=== PATIENT | female | born 1965 | race American Indian/Alaskan Native ===

== ENCOUNTER 2018-01-13 10:19 | Outpatient (CLI) | payer OTHER ==
--- NOTE | 2018-01-13 11:07 | XRay Report ---
RIGHT KNEE RADIOGRAPHS INDICATION: Crohn's disease. COMPARISON: None similar. FINDINGS: AP and lateral right knee radiographs demonstrate intact bony articulation and appearance. Normal soft tissues without evidence of suprapatellar effusion. CONCLUSION: Normal right knee radiographs. Thank you for the opportunity to participate in this patient's care.
--- NOTE | 2018-01-13 11:14 | XRay Report ---
LUMBAR SPINE RADIOGRAPHS INDICATION: Crohn's disease, depression, fibroid tumors. COMPARISON: None similar. FINDINGS: AP and lateral lumbar spine radiographs demonstrate normal vertebral body stature and alignment. Slight lower lumbar disc narrowing not entirely excluded. Mild lumbar degenerative spurring. Intact SI joints. Few pelvic calcifications. Nonobstructive bowel gas pattern. Right hemiabdomen postsurgical howie. Clothing artifact projects over lower thoracic spine. CONCLUSION: No acute radiographic abnormality with few incidental findings, as above. Thank you for the opportunity to participate in this patient's care.
== END 2018-01-13 10:20 | disposition home or self-care (01) ==
LOC: XRAY 10:19
PROVIDERS: ATTEND Internal Medicine
DX: M53.86 Other specified dorsopathies, lumbar region (principal); D21.9 Benign neoplasm of connective and other soft tissue, unspecified; F32.9 Major depressive disorder, single episode, unspecified; K50.90 Crohn's disease, unspecified, without complications; H40.9 Unspecified glaucoma; M72.2 Plantar fascial fibromatosis; G56.03 Carpal tunnel syndrome, bilateral upper limbs
CPT/HCPCS: 72100